=== PATIENT | male | born 1990 | race American Indian/Alaskan Native ===

== ENCOUNTER 2019-08-21 14:25 | Emergency (ER) | payer SELFPAY ==
[2019-08-21 15:42] LABS: Basophils % (Auto) 0.4 % (0.0-1.8); Eosinophils # (Auto) 0.1 K/mm3 (0.0-0.4); Eosinophils % (Auto) 2.1 % (0.0-4.3); Hematocrit 40.4 % (35.5-45.6); Hemoglobin 13.4 gm/dl (11.8-15.2); Lymphocytes # (Auto) 1.5 K/mm3 (1.2-5.4); Lymphocytes % (Auto) 24.5 % (13.4-35.0); Mean Corpuscular HGB Conc 33 % (32-34); Mean Corpuscular Volume 94 fl (84-94); Monocytes # (Auto) 0.7 K/mm3 (0.0-0.8); Platelet Count 202 K/mm3 (140-440); Red Blood Count 4.29 M/mm3 (3.65-5.03); Red Cell Distribution Width 15.2 % (13.2-15.2)
[2019-08-21 15:51] LABS: BUN/Creatinine Ratio 27; Blood Urea Nitrogen 24 mg/dL (9-20); Calcium 8.5 mg/dL (8.4-10.2); Hemolysis Index 7
--- NOTE | 2019-08-21 15:55 | Emergency Department Report ---
Chief Complaint: Abdominal Pain Stated Complaint: PAIN IN GENITAL/ABD PAIN/SORE THROAT Time Seen by Provider: 08/21/19 15:39 - HPI History of Present Illness: 28-year-old -[place] male presents to the emergency room complaining of dysuria and penile discharge for 2 weeks. Patient also reports to feeling nose and sore throat. Patient reports he works at [employer] any feels that environment history of this. Patient does admit to having unprotected interc ourse with 2 partners status. Patient reported to this he has chest pain but denies any chest pain to this provider. Patient is taking nothing for his pain. Patient denies any fever chills no nausea no vomiting no shortness of breath. - Exam Vital Signs: Vital Signs 08/21/19 14:32 Temperature 98.4 F Pulse Rate 88 Respiratory 16 Rate Blood Pressure 133/59 O2 Sat by Pulse 100 Oximetry Physical Exam: GENERAL APPEARANCE: Well developed, well nourished, in no acute distress. SKIN: Inspection of the skin reveals no rashes, ulcerations or petechiae. HEENT: The sclerae were anicteric and conjunctivae were pink and moist. Extraocular movements were intact and pupils were equal, round, and reactive to light with normal accommodation. External inspection of the ears and nose showed no scars, lesions, or masses. Lips, teeth, and gums showed normal mucosa. CHEST: Normal AP diameter and normal contour without any kyphoscoliosis. LUNGS: Auscultation of the lungs revealed normal breath sounds without any other adventitious sounds or rubs. CARDIOVASCULAR: There was a regular rate and rhythm without any murmurs, gallops, rubs. The carotid pulses were normal and 2+ bilaterally without bruits. Peripheral pulses were 2+ and symmetric. ABDOMEN: Soft and nontender with normal bowel sounds. MUSCULOSKELETAL: Gait was normal. There was no tenderness or effusions noted. Muscle strength and tone were normal. EXTREMITIES: No cyanosis, clubbing or edema. NEUROLOGIC: Alert and oriented x 3. Normal affect. Gait was normal. Sensation to touch was normal. MSE screening note: Focused history and physical exam performed. Due to findings the following was ordered: Patient currently has no chest pain. Patient can follow-up at the health Department for full STD panel. Stuffy nose and sore throat patient and take [id number] Flonase and Claritin. Patient to follow-up with one of the community providers of health Department. ED Medical Decision Making - Lab Data Result diagrams: 08/21/19 15:25 - Medical Decision Making 28-year-old -[place] male presents to the emergency room complaining of dysuria and penile discharge for 2 weeks. Patient also reports to feeling nose and sore throat. Patient reports he works at [employer] any feels that environment history of this. Patient does admit to having unprotected intercourse with 2 partners status. Patient reported to this he has chest pain but denies any chest pain to this provider. Patient is taking nothing for his pain. Patient denies any fever chills no nausea no vomiting no shortness of breath. ED Disposition for MSE Clinical Impression: Concern about STD in male without diagnosis Disposition: -01 TO HOME OR SELFCARE Is pt being admited?: No Does the pt Need Aspirin: No Condition: Stable Referrals: [facility] [Outside] - 3-5 Days [facility] [Outside] - 3-5 Days [facility] [Outside] - 3-5 Days [facility] [Outside] - 3-5 Days
[2019-08-21 16:21] LABS: Bilirubin,Urine NEG (Negative); Blood,Urine NEG (Negative); Color,Urine Yellow (Yellow); Mucus,Urine FEW /HPF; Protein,Urine <15 mg/dL mg/dL (Negative)
[2019-08-21 17:49] VITALS: BP 136/90
== END 2019-08-21 16:51 | disposition home or self-care (01) ==
LOC: ED 14:25
DX: R30.0 Dysuria (principal); R36.9 Urethral discharge, unspecified; J02.9 Acute pharyngitis, unspecified
CPT/HCPCS: 36415; 80048; 81001; 85025

== ENCOUNTER 2019-08-21 16:16 | Emergency (ER) | payer SELFPAY ==
[2019-08-21 16:38] VITALS: BP 101/67
--- NOTE | 2019-08-21 16:44 | Event Note ---
ED Screening Note Date of service: 08/21/19 Time: 16:35 ED Screening Note: Pt here again after being discharge today requesting medication to treat STI. Pt was seen earlier for dysuria and penile discharge x 2 weeks. Pt was informed to f/u at the Health department for testing and treatment given his condition is not a life threatening emergency. Pt denies fever or abdominal pain. Pt again informed to f/u with the health department-information given to pt. Vitals wnl. This initial assessment/diagnostic orders/clinical plan/treatment(s) is/are subject to change based on patients health status, clinical progression and re- assessment by fellow clinical providers in the ED. Further treatment and workup at subsequent clinical providers discretion. Patient/guardian urged not to elope from the ED as their condition may be serious if not clinically assessed and managed. Initial orders include:
== END 2019-08-21 17:00 | disposition left against medical advice (07) ==
LOC: ED 16:16
DX: R30.0 Dysuria (principal); Z53.21 Procedure and treatment not carried out due to patient leaving prior to being seen by health care provider

== ENCOUNTER 2019-10-08 05:01 | Emergency (ER) | payer SELFPAY ==
[2019-10-08] MEDS ORDERED: ONDANSETRON 4 MG/2 ML INJ ONE (05:10)
[2019-10-08] MEDS ORDERED: SODIUM CHLORIDE 0.9% 1000 ML 1,000 ML ONE (05:11)
[2019-10-08] MEDS ORDERED: HALOPERIDOL LACTATE 5 MG/1 ML INJ ONE (05:11)
[2019-10-08] MEDS ORDERED: HALOPERIDOL LACTATE 5 MG/1 ML INJ IV ONE (05:17)
[2019-10-08] MEDS ORDERED: SODIUM CHLORIDE 0.9% 1000 ML 1,000 ML IV ONE ×2 (05:21→06:31)
[2019-10-08] MEDS ORDERED: ONDANSETRON 4 MG/2 ML INJ IV ONE (05:21)
[2019-10-08] MEDS ORDERED: HYDROmorphone 1 MG/1 ML INJ IV ONE (05:22)
[2019-10-08 05:48] LABS: Basophils % (Auto) 0.1 % (0.0-1.8); Hematocrit 38.4 % (35.5-45.6); Hemoglobin 12.8 gm/dl (11.8-15.2); Lymphocytes # (Auto) 0.8 K/mm3 (1.2-5.4); Mean Corpuscular HGB Conc 33 % (32-34); Mean Corpuscular Volume 95 fl (84-94); Monocytes # (Auto) 0.8 K/mm3 (0.0-0.8); Monocytes % (Auto) 5.4 % (0.0-7.3); Platelet Count 233 K/mm3 (140-440); Red Blood Count 4.06 M/mm3 (3.65-5.03); Red Cell Distribution Width 14.3 % (13.2-15.2)
[2019-10-08 06:08] LABS: Alanine Aminotransferase 20 units/L (7-56); Albumin 4.3 g/dL (3.9-5); BUN/Creatinine Ratio 22; Blood Urea Nitrogen 20 mg/dL (9-20); Calcium 9.2 mg/dL (8.4-10.2); Hemolysis Index 2
[2019-10-08] MEDS ORDERED: PIPERACILLIN/TAZOBACTAM 3.375 3.375 GM/50 ML BAG IV ONE (06:48)
--- NOTE | 2019-10-08 07:03 | Emergency Department Report ---
ED Abdominal Pain HPI - General Chief Complaint: Abdominal Pain Stated Complaint: gastric ulcer Time Seen by Provider: 10/08/19 06:17 Source: patient, EMS Mode of arrival: Stretcher Limitations: No Limitations - History of Present Illness Initial Comments: Patient is 28 years old male with no significant past medical history. Patient presented to the ER complaining of severe epigastric pain started approximately 3 hours before getting to the hospital. Patient stated that pain is unassociated with nausea, vomiting and diarrhea. Patient denied any fever or chills. Patient denied any recent abdominal trauma. MD Complaint: abdominal pain -: Sudden Location: epigastric Radiation: none Migration to: no migration Severity: severe Severity scale (0 -10): 10 Quality: sharp Consistency: constant - Related Data Previous Rx's Medication Instructions Recorded Last Taken Type Amitriptyline [Elavil] 25 mg PO QHS #30 tab 07/25/15 Unknown Rx Allergies Allergy/AdvReac Type Severity Reaction Status Date / Time No Known Allergies Allergy Verified 08/21/19 16:25 ED Review of Systems ROS: Stated complaint: gastric ulcer Other details as noted in HPI Comment: All other systems reviewed and negative Constitutional: denies: chills, fever Respiratory: denies: cough, shortness of breath, SOB with exertion Cardiovascular: denies: chest pain, palpitations Gastrointestinal: abdominal pain, nausea, vomiting, diarrhea. denies: constipation, hematemesis, melena, hematochezia Musculoskeletal: denies: back pain Neurological: denies: headache, weakness, numbness, paresthesias, confusion, abnormal gait ED Past Medical Hx - Past Medical History Previous Medical History?: Yes Hx Congestive Heart Failure: No Hx Diabetes: No Hx Asthma: No Hx COPD: No Hx HIV: No Additional medical history: stomach ulcers - Surgical History Past Surgical History?: No - Social History Smoking Status: Never Smoker - Medications Home Medications: Home Medications Medication Instructions Recorded Confirmed Last Taken Type Amitriptyline [Elavil] 25 mg PO QHS #30 tab 07/25/15 Unknown Rx ED Physical Exam - General Limitations: No Limitations General appearance: alert, in no apparent distress - Head Head exam: Present: atraumatic, normocephalic, normal inspection - Eye Eye exam: Present: normal appearance - ENT ENT exam: Present: mucous membranes dry - Neck Neck exam: Present: normal inspection, full ROM. Absent: tenderness, meningismus, lymphadenopathy, thyromegaly - Respiratory Respiratory exam: Present: normal lung sounds bilaterally - Cardiovascular Cardiovascular Exam: Present: regular rate, normal rhythm, normal heart sounds - GI/Abdominal GI/Abdominal exam: Present: soft, normal bowel sounds. Absent: distended, tende rness, guarding, rebound, rigid, organomegaly, mass, bruit, pulsatile mass, hernia - Extremities Exam Extremities exam: Present: normal inspection, full ROM, normal capillary refill. Absent: pedal edema, calf tenderness - Back Exam Back exam: Present: normal inspection, full ROM. Absent: CVA tenderness (R), CVA tenderness (L), muscle spasm, paraspinal tenderness, vertebral tenderness - Neurological Exam Neurological exam: Present: alert, oriented X3, CN II-XII intact, normal gait, reflexes normal - Psychiatric Psychiatric exam: Present: normal mood - Skin Skin exam: Present: warm, intact, normal color ED Course Vital Signs 10/08/19 10/08/19 10/08/19 04:54 04:56 05:06 Temperature 97.7 F Pulse Rate 65 Respiratory 20 Rate Blood Pressure 93/48 Blood Pressure [Left] O2 Sat by Pulse 94 99 94 Oximetry 10/08/19 10/08/19 10/08/19 05:10 05:16 05:20 Temperature Pulse Rate Respiratory Rate Blood Pressure 93/48 96/46 96/46 Blood Pressure [Left] O2 Sat by Pulse 99 95 94 Oximetry 10/08/19 10/08/19 10/08/19 05:26 05:30 05:36 Temperature Pulse Rate Respiratory Rate Blood Pressure 99/53 99/53 Blood Pressure [Left] O2 Sat by Pulse 100 99 97 Oximetry 10/08/19 10/08/19 10/08/19 05:40 05:46 05:50 Temperature Pulse Rate Respiratory Rate Blood Pressure 107/54 118/61 111/59 Blood Pressure [Left] O2 Sat by Pulse 99 99 99 Oximetry 10/08/19 10/08/19 10/08/19 05:56 06:00 06:06 Temperature Pulse Rate Respiratory 16 Rate Blood Pressure 113/62 111/66 124/62 Blood Pressure [Left] O2 Sat by Pulse 99 99 98 Oximetry 10/08/19 10/08/19 10/08/19 06:10 06:16 06:20 Temperature Pulse Rate Respiratory Rate Blood Pressure 120/64 123/63 134/53 Blood Pressure [Left] O2 Sat by Pulse 98 98 98 Oximetry 10/08/19 10/08/19 10/08/19 06:26 06:30 06:36 Temperature Pulse Rate Respiratory Rate Blood Pressure 129/51 115/55 109/62 Blood Pressure [Left] O2 Sat by Pulse 96 96 96 Oximetry 10/08/19 10/08/19 10/08/19 06:40 06:46 06:50 Temperature Pulse Rate Respiratory Rate Blood Pressure 110/60 95/46 100/49 Blood Pressure [Left] O2 Sat by Pulse 96 96 96 Oximetry 10/08/19 10/08/19 10/08/19 06:56 07:27 07:28 Temperature Pulse Rate 80 Respiratory 16 Rate Blood Pressure 105/52 115/68 Blood Pressure 115/68 [Left] O2 Sat by Pulse 96 95 97 Oximetry 10/08/19 10/08/19 10/08/19 07:30 07:36 07:40 Temperature Pulse Rate 79 74 70 Respiratory 15 14 14 Rate Blood Pressure 115/68 115/68 115/68 Blood Pressure [Left] O2 Sat by Pulse 97 98 98 Oximetry 10/08/19 10/08/19 10/08/19 07:46 07:50 07:56 Temperature Pulse Rate 70 86 86 Respiratory 14 13 12 Rate Blood Pressure 115/68 115/68 115/68 Blood Pressure [Left] O2 Sat by Pulse 98 96 95 Oximetry 10/08/19 10/08/19 10/08/19 08:00 08:06 08:10 Temperature Pulse Rate 83 90 68 Respiratory 14 14 12 Rate Blood Pressure 115/68 115/68 115/68 Blood Pressure [Left] O2 Sat by Pulse 95 96 98 Oximetry 10/08/19 10/08/19 10/08/19 08:16 08:20 08:26 Temperature Pulse Rate 78 64 70 Respiratory 13 13 12 Rate Blood Pressure 115/68 115/68 115/68 Blood Pressure [Left] O2 Sat by Pulse 97 98 97 Oximetry 10/08/19 10/08/19 10/08/19 08:30 08:36 08:40 Temperature Pulse Rate 69 67 72 Respiratory 11 L 12 11 L Rate Blood Pressure 115/68 99/46 99/46 Blood Pressure [Left] O2 Sat by Pulse 97 98 98 Oximetry 10/08/19 10/08/19 10/08/19 08:46 08:50 08:56 Temperature Pulse Rate 67 110 H 105 H Respiratory 13 13 10 L Rate Blood Pressure 99/46 99/46 99/46 Blood Pressure [Left] O2 Sat by Pulse 98 98 97 Oximetry 10/08/19 10/08/19 10/08/19 09:00 09:06 09:10 Temperature Pulse Rate 67 68 68 Respiratory 13 12 12 Rate Blood Pressure 99/46 99/46 99/46 Blood Pressure [Left] O2 Sat by Pulse 98 98 98 Oximetry 10/08/19 09:50 Temperature Pulse Rate 65 Respiratory 12 Rate Blood Pressure Blood Pressure 122/43 [Left] O2 Sat by Pulse 98 Oximetry ED Medical Decision Making - Lab Data Result diagrams: 10/08/19 05:25 10/08/19 05:25 - Radiology Data Radiology results: report reviewed - Medical Decision Making Patient is 28 years old male with no significant past medical history. Patient presented to the ER complaining of severe epigastric pain started approximately 3 hours before getting to the hospital. Patient stated that pain is unassoc iated with nausea, vomiting and diarrhea. Patient denied any fever or chills. Patient denied any recent abdominal trauma. Labs reviewed that is unremarkable except for elevated white blood cells. CT abdomen and pelvis is negative for acute finding. Patient stated that he is feeling much better and he is ready to go home. Patient given prescription for Zofran and Nexium and advised to follow up with his primary care physician in the next 2-3 days and to return to the ER if symptoms are not improved. Critical care attestation.: If time is entered above; I have spent that time in minutes in the direct care of this critically ill patient, excluding procedure time. ED Disposition Clinical Impression: Cannabinoid hyperemesis syndrome, Abdominal pain, Vomiting Disposition: DC-01 TO HOME OR SELFCARE Is pt being admited?: No Condition: Stable Instructions: Cannabis Abuse (ED), Abdominal Pain (ED) Referrals: [facility] [Provider Group] - 3-5 Days
--- NOTE | 2019-10-08 07:51 | Cat Scan Report ---
CT ABDOMEN AND PELVIS WITH CONTRAST INDICATION: Generalized abdominal pain. COMPARISON: CT abdomen and pelvis with contrast from 07/22/2015. TECHNIQUE: Axial, coronal and sagittal CT imaging of the abdomen and pelvis was performed after inje ction of 100 cc Omnipaque [address] scans at this location are performed using CT dose re duction for ALARA by means of automated exposure control. FINDINGS: LOWER CHEST: No significant abnormality. LIVER: A probable cyst is noted along the anterior segment of the right hepatic lobe on image 22 of s eries 2 measuring 7 mm. There is probable focal fatty infiltration along the falciform ligament. No o ther significant abnormality is seen. BILIARY: No significant abnormality. PANCREAS: No significant abnormality. SPLEEN: No significant abnormality. ADRENALS: No significant abnormality. KIDNEYS AND URETERS: No significant abnormality. GI TRACT: No significant abnormality of the stomach, small bowel or colon. Unremarkable appendix. PERITONEUM: No free fluid. No free air. No fluid collection. LYMPH NODES: No significant adenopathy. VASCULATURE: No significant abnormality. URINARY BLADDER: No significant abnormality. REPRODUCTIVE ORGANS: No significant abnormality. ADDITIONAL FINDINGS: None. SKELETAL SYSTEM: No significant abnormality. IMPRESSION: No acute abnormality of the abdomen or pelvis. Signer Name: Narinder Li MD Signed: 10/08/2019 7:46 AM Workstation Name: [id number]
[2019-10-08 09:34] LABS: Bilirubin,Urine NEG (Negative); Blood,Urine NEG (Negative); Color,Urine Yellow (Yellow); Mucus,Urine FEW /HPF; Protein,Urine <15 mg/dL mg/dL (Negative); Urobilinogen,Urine < 2.0 mg/dL (<2.0)
[2019-10-08 09:44] LABS: Amphetamine Screen,Urine PRESUMPTIVE NEGATIVE; Benzodiazepines Screen,Urine PRESUMPTIVE NEGATIVE; Cocaine Screen,Urine PRESUMPTIVE NEGATIVE; Methadone Screen,Urine PRESUMPTIVE NEGATIVE; Opiate Screen,Urine PRESUMPTIVE NEGATIVE
[2019-10-08 09:51] VITALS: BP 122/43
[2019-10-08 09:56] LABS: Cannabinoid Screen,Urine PRESUMPTIVE POSITIVE
== END 2019-10-08 10:56 | disposition home or self-care (01) ==
LOC: ED 05:01
DX: R10.13 Epigastric pain (principal); R11.10 Vomiting, unspecified
CPT/HCPCS: 36415; 74177; 80053; 80307; 81001; 83690; 85025; 87040; 96361; 96365; 96375; 99284; J1170; J1630; J2405; J2543; J7030; Q9967

== ENCOUNTER 2019-10-15 22:38 | Emergency (ER) | payer SELFPAY ==
[2019-10-15 23:19] VITALS: BP 110/95
[2019-10-15] MEDS ORDERED: KETOROLAC 30 MG/1 ML INJ IV ONE (23:26)
[2019-10-15] MEDS ORDERED: ONDANSETRON 4 MG/2 ML INJ IV ONE (23:26)
[2019-10-15] MEDS ORDERED: DICYCLOMINE 20 MG/2 ML INJ IM ONE (23:26)
[2019-10-15] MEDS ORDERED: SODIUM CHLORIDE 0.9% 1000 ML 1,000 ML IV ONE (23:26)
[2019-10-15] MEDS ORDERED: FAMOTIDINE 20 MG/2 ML INJ IV ONE (23:26)
[2019-10-16 00:15] LABS: Basophils # (Auto) 0.1 K/mm3 (0.0-0.1); Basophils % (Auto) 0.8 % (0.0-1.8); Eosinophils # (Auto) 0.1 K/mm3 (0.0-0.4); Eosinophils % (Auto) 0.9 % (0.0-4.3); Hematocrit 38.1 % (35.5-45.6); Lymphocytes # (Auto) 1.9 K/mm3 (1.2-5.4); Lymphocytes % (Auto) 26.7 % (13.4-35.0); Mean Corpuscular HGB Conc 34 % (32-34); Mean Corpuscular Volume 95 fl (84-94); Monocytes # (Auto) 0.5 K/mm3 (0.0-0.8); Monocytes % (Auto) 6.4 % (0.0-7.3); Platelet Count 244 K/mm3 (140-440); Red Blood Count 4.04 M/mm3 (3.65-5.03); Red Cell Distribution Width 14.2 % (13.2-15.2)
[2019-10-16 00:38] LABS: Alanine Aminotransferase 16 units/L (7-56); Albumin 4.1 g/dL (3.9-5); BUN/Creatinine Ratio 20; Blood Urea Nitrogen 18 mg/dL (9-20); Hemolysis Index 8
--- NOTE | 2019-10-16 02:53 | Emergency Department Report ---
ED N/V/D HPI - General Chief complaint: Abdominal Pain Stated complaint: ABD PAIN Time Seen by Provider: 10/15/19 23:26 Source: EMS Mode of arrival: Stretcher Limitations: No Limitations - History of Present Illness Initial comments: Patient is a 28-year-old [place] male with past medical history of ulcers was complaining of some left upper quadrant pain with nausea vomiting diarrhea. Patient states pain is been present for last several hours. It occurred acutely. Patient states his last meal was some donut sticks. He denies fevers chills. Patient states the pain is a 10 out of 10 in severity. It is not has remained quite some time. - Related Data Previous Rx's Medication Instructions Recorded Last Taken Type Amitriptyline [Elavil] 25 mg PO QHS #30 tab 07/25/15 Unknown Rx Esomeprazole Magnesium [NexIUM] 40 mg PO QDAY #30 capsule. 10/08/19 Unknown Rx Ondansetron [Zofran Odt] 4 mg PO Q8HR PRN #14 tab.rapdis 10/08/19 Unknown Rx Ondansetron [Zofran Odt] 4 mg PO Q8HR #10 tab.rapdis 10/16/19 Unknown Rx Pantoprazole [Protonix] 40 mg PO QDAY #30 tablet 10/16/19 Unknown Rx Allergies Allergy/AdvReac Type Severity Reaction Status Date / Time No Known Allergies Allergy Verified 08/21/19 16:25 ED Review of Systems ROS: Stated complaint: ABD PAIN Other details as noted in HPI Comment: All other systems reviewed and negative ED Past Medical Hx - Past Medical History Previous Medical History?: Yes Hx Congestive Heart Failure: No Hx Diabetes: No Hx Asthma: No Hx COPD: No Hx HIV: No Additional medical history: stomach ulcers - Surgical History Past Surgical History?: No - Social History Smoking Status: Never Smoker Substance Use Type: Marijuana - Medications Home Medications: Home Medications Medication Instructions Recorded Confirmed Last Taken Type Amitriptyline [Elavil] 25 mg PO QHS #30 tab 07/25/15 Unknown Rx Esomeprazole Magnesium [NexIUM] 40 mg PO QDAY #30 capsule. 10/08/19 Unknown Rx Ondansetron [Zofran Odt] 4 mg PO Q8HR PRN #14 tab.malik 10/08/19 Unknown Rx Ondansetron [Zofran Odt] 4 mg PO Q8HR #10 tab.rapdis 10/16/19 Unknown Rx Pantoprazole [Protonix] 40 mg PO QDAY #30 tablet 10/16/19 Unknown Rx ED Physical Exam - General Limitations: No Limitations General appearance: alert, in distress - Head Head exam: Present: atraumatic, normocephalic - Eye Eye exam: Present: normal appearance, PERRL, EOMI - ENT ENT exam: Present: mucous membranes moist - Neck Neck exam: Present: normal inspection - Respiratory Respiratory exam: Present: normal lung sounds bilaterally. Absent: respiratory distress, wheezes, rales, rhonchi - Cardiovascular Cardiovascular Exam: Present: regular rate, normal rhythm, normal heart sounds. Absent: systolic murmur, diastolic murmur, rubs, gallop - GI/Abdominal GI/Abdominal exam: Present: soft, tenderness (epigastric and LUQ pain ), normal bowel sounds. Absent: distended, guarding, rebound - Rectal Rectal exam: Present: deferred - Extremities Exam Extremities exam: Present: normal inspection - Back Exam Back exam: Present: normal inspection - Neurological Exam Neurological exam: Present: alert, oriented X3 - Psychiatric Psychiatric exam: Present: normal affect, normal mood - Skin Skin exam: Present: warm, dry, intact, normal color. Absent: rash ED Course Vital Signs 10/15/19 23:18 Temperature 99.5 F Pulse Rate 75 Respiratory 18 Rate Blood Pressure 110/95 [Right] O2 Sat by Pulse 97 Oximetry ED Medical Decision Making - Lab Data Result diagrams: 10/15/19 23:53 10/15/19 23:53 Lab Results 10/15/19 10/15/19 Range/Units 23:53 23:53 WBC 7.1 (4.5-11.0) K/mm3 RBC 4.04 (3.65-5.03) M/mm3 Hgb 13.0 (11.8-15.2) gm/dl Hct 38.1 (35.5-45.6) % MCV 95 H (84-94) fl MCH 32 (28-32) pg MCHC 34 (32-34) % RDW 14.2 (13.2-15.2) % Plt Count 244 (140-440) K/mm3 Lymph % (Auto) 26.7 (13.4-35.0) % [place] % (Auto) 6.4 (0.0-7.3) % Eos % (Auto) 0.9 (0.0-4.3) % Baso % (Auto) 0.8 (0.0-1.8) % Lymph # 1.9 (1.2-5.4) K/mm3 [place] # 0.5 (0.0-0.8) K/mm3 Eos # 0.1 (0.0-0.4) K/mm3 Baso # 0.1 (0.0-0.1) K/mm3 Seg Neutrophils % 65.2 (40.0-70.0) % Seg Neutrophils # 4.6 (1.8-7.7) K/mm3 Sodium 141 (137-145) mmol/L Potassium 3.9 (3.6-5.0) mmol/L Chloride 106.8 (98-107) mmol/L Carbon Dioxide 24 (22-30) mmol/L Anion Gap 14 mmol/L BUN 18 (9-20) mg/dL Creatinine 0.9 (0.8-1.5) mg/dL Estimated GFR > 60 ml/min BUN/Creatinine Ratio 20 % Glucose 103 H (75-100) mg/dL Calcium 9.0 (8.4-10.2) mg/dL Total Bilirubin 0.80 (0.1-1.2) mg/dL AST 20 (5-40) units/L ALT 16 (7-56) units/L Alkaline Phosphatase 49 (35-129) units/L Total Protein 6.7 (6.3-8.2) g/dL Albumin 4.1 (3.9-5) g/dL Albumin/Globulin Ratio 1.6 % Lipase 124 H (13-60) units/L - Radiology Data CT abd pelvis was refused by patient - Medical Decision Making Admitted that he's had multiple CTs are all negative this year. Patient refuses CT. Patient states he feels better and is ready to go home. Patient to be discharged home with medication for symptomatic relief. Critical care attestation.: If time is entered above; I have spent that time in minutes in the direct care of this critically ill patient, excluding procedure time. ED Disposition Clinical Impression: Gastritis Disposition: DC-01 TO HOME OR SELFCARE Is pt being admited?: No Does the pt Need Aspirin: No Condition: Stable Instructions: Gastritis (ED) Referrals: [facility] [Provider Group] - 3-5 Days
[2019-10-16] MEDS ORDERED: ONDANSETRON 4 MG ODT TAB PO ONE (03:58)
[2019-10-16] MEDS ORDERED: ALUM-MAG HYDROXIDE-SIMETHICONE 200-200-20MG/5ML ORAL LIQD 30 ML PO ONE (04:50)
[2019-10-16] MEDS ORDERED: LIDOCAINE VISCOUS 2% 15 ML ORAL LIQD PO ONE (04:50)
== END 2019-10-16 05:16 | disposition home or self-care (01) ==
LOC: ED 22:38
DX: K29.70 Gastritis, unspecified, without bleeding (principal); F12.10 Cannabis abuse, uncomplicated; Z79.899 Other long term (current) drug therapy
CPT/HCPCS: 36415; 80053; 83690; 85025; 96372; 96374; 96375; 99284; J0500; J1885; J2405; J7030; Q0162

== ENCOUNTER 2019-12-25 15:12 | Emergency (ER) | payer SELFPAY ==
[2019-12-25 15:18] VITALS: BP 100/61
== END 2019-12-25 16:20 | disposition left against medical advice (07) ==
LOC: ED 15:12
DX: R10.9 Unspecified abdominal pain (principal); Z53.21 Procedure and treatment not carried out due to patient leaving prior to being seen by health care provider

== ENCOUNTER 2020-03-31 16:56 | Emergency (ER) | payer SELFPAY ==
[2020-03-31] MEDS ORDERED: HALOPERIDOL LACTATE 5 MG/1 ML INJ IM STA (18:30)
[2020-03-31] MEDS ORDERED: SODIUM CHLORIDE 0.9% 500 ML 500 ML IV ONE (18:30)
[2020-03-31] MEDS ORDERED: CAPSAICIN 0.075% CREAM 60 GM TP STA (18:30)
[2020-03-31] MEDS ORDERED: PANTOPRAZOLE 40 MG INJ IV ONE (18:31)
--- NOTE | 2020-03-31 18:32 | Emergency Department Report ---
ED General Adult HPI - General Chief complaint: Abdominal Pain Stated complaint: ABD PAIN/VOMITING PUI?: No Time Seen by Provider: 03/31/20 17:59 Source: patient, RN notes reviewed, old records reviewed Mode of arrival: Ambulatory Limitations: Physical Limitation - History of Present Illness Initial comments: The patient is a 29-year-old gentleman. He is not known to myself previously. He does not have a local primary care doctor. His past medical history includes cyclic vomiting syndrome, possible cannabinoid hyperemesis syndrome. He may also have a history of GERD, gastritis. He presents to the ER with 3 to 4 days of nontraumatic left-sided abdominal pain, nausea and vomiting. This is similar to prior presentations. Abdominal pain is sharp and throbbing, does not radiate anywhere, increases with palpation, decreases with rest and position. There is no complaint of headache, neck pain, chest pain. There is no testicular pain, and there were no irritative or obstructive urinary symptoms. He further reports no coronavirus symptoms. He also reports that there is no change in his symptomatology when taking a hot bath or hot shower. Emesis is nonbloody and nonbilious. -: Gradual, days(s) Location: abdomen Consistency: constant Improves with: rest Worsens with: movement - Related Data Previous Rx's Medication Instructions Recorded Last Taken Type Amitriptyline [Elavil] 25 mg PO QHS #30 tab 07/25/15 Unknown Rx Esomeprazole Magnesium [NexIUM] 40 mg PO QDAY #30 capsule. 10/08/19 Unknown Rx Ondansetron [Zofran Odt] 4 mg PO Q8HR PRN #14 tab.malik 10/08/19 Unknown Rx Ondansetron [Zofran Odt] 4 mg PO Q8HR #10 tab.malik 10/16/19 Unknown Rx Pantoprazole [Protonix] 40 mg PO QDAY #30 tablet 10/16/19 Unknown Rx Famotidine [Pepcid] 20 mg PO BID #10 tablet 03/31/20 Unknown Rx Ana Root [Ana] 250 mg PO QID PRN #30 capsule 03/31/20 Unknown Rx Metoclopramide [Reglan] 10 mg PO QID PRN #30 tablet 03/31/20 Unknown Rx Promethazine [Phenergan] 25 mg CO Q6HR PRN #15 supp.rect 03/31/20 Unknown Rx Allergies Allergy/AdvReac Type Severity Reaction Status Date / Time No Known Allergies Allergy Verified 12/25/19 15:17 ED Review of Systems ROS: Stated complaint: ABD PAIN/VOMITING Other details as noted in HPI Constitutional: malaise. denies: fever Eyes: denies: eye discharge ENT: denies: congestion Respiratory: denies: wheezing Cardiovascular: denies: chest pain Gastrointestinal: abdominal pain, nausea, vomiting. denies: diarrhea, constipation, hematemesis, melena, hematochezia Genitourinary: denies: urgency, dysuria, frequency, testicular pain Musculoskeletal: denies: back pain Skin: denies: lesions Neurological: weakness Psychiatric: anxiety Hematological/Lymphatic: denies: easy bleeding ED Past Medical Hx - Past Medical History Previous Medical History?: Yes Hx Congestive Heart Failure: No Hx Diabetes: No Hx Asthma: No Hx COPD: No Hx HIV: No Additional medical history: stomach ulcers - Surgical History Past Surgical History?: No - Social History Smoking Status: Current Every Day Smoker Substance Use Type: Alcohol - Medications Home Medications: Home Medications Medication Instructions Recorded Confirmed Last Taken Type Amitriptyline [Elavil] 25 mg PO QHS #30 tab 07/25/15 Unknown Rx Esomeprazole Magnesium [NexIUM] 40 mg PO QDAY #30 capsule.dr 10/08/19 Unknown Rx Ondansetron [Zofran Odt] 4 mg PO Q8HR PRN #14 tab.gayatridis 10/08/19 Unknown Rx Ondansetron [Zofran Odt] 4 mg PO Q8HR #10 tab.malik 10/16/19 Unknown Rx Pantoprazole [Protonix] 40 mg PO QDAY #30 tablet 10/16/19 Unknown Rx Famotidine [Pepcid] 20 mg PO BID #10 tablet 03/31/20 Unknown Rx Ana Root [Ana] 250 mg PO QID PRN #30 capsule 03/31/20 Unknown Rx Metoclopramide [Reglan] 10 mg PO QID PRN #30 tablet 03/31/20 Unknown Rx Promethazine [Phenergan] 25 mg CO Q6HR PRN #15 supp.rect 03/31/20 Unknown Rx ED Physical Exam - General Limitations: No Limitations General appearance: alert, anxious, in distress - Head Head exam: Present: atraumatic, normocephalic - Eye Eye exam: Present: normal appearance, EOMI. Absent: nystagmus - ENT ENT exam: Present: normal exam, normal orophraynx, mucous membranes moist, normal external ear exam - Neck Neck exam: Present: normal inspection, full ROM. Absent: tenderness, meningismus - Respiratory Respiratory exam: Present: normal lung sounds bilaterally. Absent: respiratory distress - Cardiovascular Cardiovascular Exam: Present: normal rhythm, tachycardia, normal heart sounds. Absent: systolic murmur, diastolic murmur, rubs, gallop - GI/Abdominal GI/Abdominal exam: Present: soft, tenderness, other (There is diffuse left-sided abdominal tenderness.). Absent: distended, guarding, rebound, rigid, pulsatile mass - Rectal Rectal exam: Present: deferred - Extremities Exam Extremities exam: Present: normal inspection, full ROM, other (2+ pulses noted in the bilateral upper and lower extremities. There is no palpable cord. negative Homans sign. Muscular compartments are soft. The pelvis is stable.). Absent: pedal edema, calf tenderness - Back Exam Back exam: Present: normal inspection. Absent: tenderness, CVA tenderness (R), CVA tenderness (L), paraspinal tenderness, vertebral tenderness - Neurological Exam Neurological exam: Present: alert, oriented X3, other (No facial droop. Tongue midline. Extraocular movements intact bilaterally. Facial sensation intact to light touch in V1, V2, V3 distribution bilaterally. 5 and a 5 strength in 4 extremities. Sensation intact to light touch in 4 extremities.). Absent: motor sensory deficit - Psychiatric Psychiatric exam: Present: anxious - Skin Skin exam: Present: warm, dry, intact, normal color. Absent: rash ED Course Vital Signs 03/31/20 03/31/20 03/31/20 17:12 17:15 17:16 Temperature 98 F Pulse Rate 105 H Respiratory 16 Rate Blood Pressure 103/63 105/68 103/63 O2 Sat by Pulse 100 100 Oximetry 03/31/20 03/31/20 03/31/20 17:45 18:15 18:52 Temperature Pulse Rate Respiratory Rate Blood Pressure 95/58 103/68 113/73 O2 Sat by Pulse 98 100 97 Oximetry 03/31/20 03/31/20 03/31/20 19:01 19:15 20:00 Temperature Pulse Rate Respiratory Rate Blood Pressure 95/58 130/74 124/65 O2 Sat by Pulse 98 98 95 Oximetry 03/31/20 03/31/20 03/31/20 20:15 21:00 21:15 Temperature Pulse Rate 164 H 112 H Respiratory 14 Rate Blood Pressure 130/74 169/119 136/70 O2 Sat by Pulse 98 94 99 Oximetry 03/31/20 03/31/20 03/31/20 21:31 21:45 22:01 Temperature Pulse Rate 104 H 105 H 109 H Respiratory 14 14 Rate Blood Pressure 136/70 O2 Sat by Pulse 98 99 98 Oximetry 03/31/20 03/31/20 03/31/20 22:15 22:31 22:45 Temperature Pulse Rate 105 H 108 H 129 H Respiratory 14 20 Rate Blood Pressure O2 Sat by Pulse 100 99 99 Oximetry 03/31/20 03/31/20 04/01/20 23:00 23:45 00:00 Temperature Pulse Rate 109 H Respiratory 21 Rate Blood Pressure 113/70 102/56 O2 Sat by Pulse 98 99 97 Oximetry - Reevaluation(s) Reevaluation #1: 03/31/20 19:10 Differential diagnosis, including but not limited to: Cannabinoid hyperemesis syndrome, constipation, cyclic vomiting syndrome Assessment and plan: 29-year-old gentleman with recurrent ER visits for left- sided nontraumatic abdominal pain. This is similar to prior presentations. He was seen in October 2019 for similar symptoms. He had a CT scan abdomen pelvis October 08, 2019 which was negative for acute findings. On a subsequent visit, he declined a CAT scan. We will treat the patient's symptoms with supportive medications, and haloperidol to start. Extensive discussion had with patient. I did offer patient a CT scan, but he declined it at a concern for radiation. He understands the risks of not having a CT scan, as an obstruction, perforation, or a large kidney stone might be missed. However, given review of old chart, and similarity to prior presentations, I suspect that this is likely an exacerbation of his Cyclic vomiting syndrome and possible cannabinoid hyperemesis syndrome. Therefore, at this point in time, through shared decision making, we agreed to forego CT scan imaging. Laboratory studies, urinalysis pending. Reevaluation #2: 03/31/20 21:38 Reassessed. Belly much softer on repeat examination. Laboratory studies are reviewed and appreciated. Suggestive of dehydration, and poor oral intake. Ketones are noted in the urine. Suspect that laboratory studies are likely secondary to cyclic vomiting syndrome exacerbation. Patient may have had a mild dystonic reaction after haloperidol, and this was terminated with Benadryl. Nursing team instructed to feed patient. Repeat basic metabolic panel is pending. Patient is clinically improving. Reevaluation #3: 03/31/20 23:40 Tachycardia is much improved. No active vomiting. Laboratory studies show improvement in anion gap, and maintenance of euglycemia/hyperglycemia. The patient is suitable for trial of outpatient management at this time. He can be discharged to follow-up with outpatient gastroenterology. ED Medical Decision Making - Lab Data Result diagrams: 03/31/20 19:01 03/31/20 22:45 Vital Signs 03/31/20 17:16 Temperature 98 F Pulse Rate 105 H Respiratory 16 Rate Blood Pressure 103/63 O2 Sat by Pulse 100 Oximetry Vital Signs 03/31/20 17:16 Temperature 98 F Pulse Rate 105 H Respiratory 16 Rate Blood Pressure 103/63 O2 Sat by Pulse 100 Oximetry Lab Results 03/31/20 03/31/20 03/31/20 Range/Units 19:01 19:01 19:01 WBC 8.7 (4.5-11.0) K/mm3 RBC 4.82 (3.65-5.03) M/mm3 Hgb 14.4 (11.8-15.2) gm/dl Hct 44.0 (35.5-45.6) % MCV 91 (84-94) fl MCH 30 (28-32) pg MCHC 33 (32-34) % RDW 14.3 (13.2-15.2) % Plt Count 251 (140-440) K/mm3 PT 12.9 (12.2-14.9) Sec. INR 0.96 (0.87-1.13) Sodium 136 L (137-145) mmol/L Potassium 4.5 (3.6-5.0) mmol/L Chloride 97.1 L (98-107) mmol/L Carbon Dioxide 16 L (22-30) mmol/L Anion Gap 27 mmol/L BUN 32 H (9-20) mg/dL Creatinine 1.4 (0.8-1.5) mg/dL Estimated GFR > 60 ml/min BUN/Creatinine Ratio 23 % Glucose 65 L (75-100) mg/dL Calcium 9.5 (8.4-10.2) mg/dL Magnesium 2.20 (1.7-2.3) mg/dL Total Bilirubin 1.40 H (0.1-1.2) mg/dL AST 20 (5-40) units/L ALT 11 (7-56) units/L Alkaline Phosphatase 69 (35-129) units/L Total Creatine Kinase 152 (55-170) units/L Total Protein 6.8 (6.3-8.2) g/dL Albumin 4.6 (3.9-5) g/dL Albumin/Globulin Ratio 2.1 % Lipase (13-60) units/L 05/28/20 Range/Units 19:01 WBC (4.5-11.0) K/mm3 RBC (3.65-5.03) M/mm3 Hgb (11.8-15.2) gm/dl Hct (35.5-45.6) % MCV (84-94) fl MCH (28-32) pg MCHC (32-34) % RDW (13.2-15.2) % Plt Count (140-440) K/mm3 PT (12.2-14.9) Sec. INR (0.87-1.13) Sodium (137-145) mmol/L Potassium (3.6-5.0) mmol/L Chloride (98-107) mmol/L Carbon Dioxide (22-30) mmol/L Anion Gap mmol/L BUN (9-20) mg/dL Creatinine (0.8-1.5) mg/dL Estimated GFR ml/min BUN/Creatinine Ratio % Glucose (75-100) mg/dL Calcium (8.4-10.2) mg/dL Magnesium (1.7-2.3) mg/dL Total Bilirubin (0.1-1.2) mg/dL AST (5-40) units/L ALT (7-56) units/L Alkaline Phosphatase (35-129) units/L Total Creatine Kinase (55-170) units/L Total Protein (6.3-8.2) g/dL Albumin (3.9-5) g/dL Albumin/Globulin Ratio % Lipase 21 (13-60) units/L - EKG Data -: EKG Interpreted by Al EKG shows normal: sinus rhythm Rate: normal - EKG Data When compared to previous EKG there are: previous EKG unavailable 03/31/20 19:10 Sinus rhythm, 96 bpm, normal axis, normal intervals, poor R wave progression, low voltage high lateral leads. The EKG is abnormal. The EKG is not a STEMI. I do not have a prior for comparison. Critical care attestation.: If time is entered above; I have spent that time in minutes in the direct care of this critically ill patient, excluding procedure time. ED Disposition Clinical Impression: History of nausea and vomiting Disposition: - TO HOME OR SELFCARE Is pt being admited?: No Does the pt Need Aspirin: No Condition: Stable Additional Instructions: Avoid consumption of Motrin, ibuprofen, Naprosyn, Aleve, heavy and spicy foods, alcohol, tobacco, cannabis/marijuana. Take the prescribed medications as needed and directed. The patient may also purchase hot sauce from a local [employer], brand not important, and rub/apply hot sauce on his anterior abdominal wall, as often as as needed for symptom control and symptom relief. Please take the Reglan medication as needed for nausea and vomiting, ana tablets as needed for nausea and vomiting, and Phenergan suppositories as needed for intractable nausea and vomiting not relieved by the aforementioned oral medications. Patient may take [id number] Tylenol as needed for pain. Please follow-up with your primary care doctor or [facility] within the next 5 to 7 days. Return to the emergency room right away with new pain, worsening pain, migration of pain, projectile vomiting, change in mental status, confusion, inability to tolerate liquid feeds, new, worsened or different symptoms not present on the initial emergency room evaluation. Prescriptions: Ana Root [Ana] 250 mg PO QID PRN #30 capsule PRN Reason: Nausea Famotidine [Pepcid] 20 mg PO BID #10 tablet Promethazine [Phenergan] 25 mg CO Q6HR PRN #15 supp.rect PRN Reason: Nausea Metoclopramide [Reglan] 10 mg PO QID PRN #30 tablet PRN Reason: Nausea Referrals: [facility] [Provider Group] - 3-5 Days [facility] [Provider Group] - 3-5 Days
[2020-03-31 19:34] LABS: Hemoglobin 14.4 gm/dl (11.8-15.2); Mean Corpuscular HGB Conc 33 % (32-34); Mean Corpuscular Volume 91 fl (84-94); Platelet Count 251 K/mm3 (140-440); Red Blood Count 4.82 M/mm3 (3.65-5.03); Red Cell Distribution Width 14.3 % (13.2-15.2)
[2020-03-31 19:44] LABS: INR 0.96 (0.87-1.13)
[2020-03-31 19:45] LABS: Alanine Aminotransferase 11 units/L (7-56); Albumin 4.6 g/dL (3.9-5); BUN/Creatinine Ratio 23; Blood Urea Nitrogen 32 mg/dL (9-20); Calcium 9.5 mg/dL (8.4-10.2); Hemolysis Index 12
[2020-03-31] MEDS ORDERED: SODIUM CHLORIDE 0.9% 1000 ML 2,000 ML IV ONE (20:35)
[2020-03-31] MEDS ORDERED: DEXTROSE 50% IN WATER (25GM) 50 ML SYRINGE IV PRN (20:36)
[2020-03-31 20:41] LABS: Bilirubin,Urine NEG (Negative); Blood,Urine NEG (Negative); Color,Urine Yellow (Yellow); Mucus,Urine FEW /HPF; Protein,Urine <15 mg/dL mg/dL (Negative); Urobilinogen,Urine < 2.0 mg/dL (<2.0)
[2020-03-31] MEDS ORDERED: diphenhydrAMINE 50 MG/ML VIAL IV ONE (21:00)
[2020-03-31] MEDS ORDERED: D5W/0.45% NACL 1,000 ML IV SCH (21:00)
[2020-03-31] MEDS ORDERED: diphenhydrAMINE 50 MG/ML VIAL ONE (21:02)
[2020-03-31 21:48] LABS: BUN/Creatinine Ratio 19; Blood Urea Nitrogen 27 mg/dL (9-20); Calcium 8.2 mg/dL (8.4-10.2); Hemolysis Index 23
[2020-03-31 23:30] LABS: BUN/Creatinine Ratio 21; Blood Urea Nitrogen 25 mg/dL (9-20); Calcium 8.5 mg/dL (8.4-10.2); Hemolysis Index 5
[2020-04-01 00:09] VITALS: BP 102/56
== END 2020-04-01 00:40 | disposition home or self-care (01) ==
LOC: ED 16:56
DX: R11.2 Nausea with vomiting, unspecified (principal); R10.9 Unspecified abdominal pain; F17.200 Nicotine dependence, unspecified, uncomplicated; Z79.899 Other long term (current) drug therapy
CPT/HCPCS: 36415; 80048; 80053; 81001; 82550; 82962; 83690; 83735; 85027; 85610; 93005; 96361; 96372; 96374; 96375; 99284; C9113; J1200; J1630; J7040

== ENCOUNTER 2020-04-02 00:31 | Inpatient (IN) | payer SELFPAY ==
[2020-04-02] MEDS ORDERED: HALOPERIDOL LACTATE 5 MG/1 ML INJ IM STA (00:32)
[2020-04-02] MEDS ORDERED: SODIUM CHLORIDE 0.9% 1000 ML 1,000 ML IV ONE ×2 (00:32→02:36)
[2020-04-02] MEDS ORDERED: diphenhydrAMINE 50 MG/ML VIAL IV ONE (00:35)
[2020-04-02] MEDS ORDERED: METOCLOPRAMIDE 10 MG/2 ML INJ IV ONE (00:35)
--- NOTE | 2020-04-02 00:36 | Emergency Department Report ---
ED General Adult HPI - General Chief complaint: Abdominal Pain Stated complaint: ABD PAIN, VOMITING PUI?: No Time Seen by Provider: 04/02/20 00:32 Source: patient, EMS ( EMS documentation not available at time of chart di ctation ), RN notes reviewed, old records reviewed Mode of arrival: Stretcher Limitations: Physical Limitation - History of Present Illness Initial comments: The patient is a 29-year-old gentleman. I saw him yesterday for abdominal pain, likely secondary to cyclic vomiting syndrome/possible cannabinoid hyperemesis syndrome. Please see my note from yesterday for full details of his past medical history. Apparently, after receiving haloperidol, he went home, and felt uneasy, and jittery. He also describes difficulty with sleeping. His abdominal pain, nausea vomiting came back. It is a same pain that he had yesterday. It is relieved with a one-time dose of hydromorphone in the emergency room. The patient refused haloperidol. He was also improved mildly with Reglan. However, he is still having jittering, nausea and vomiting. -: Gradual Location: abdomen Quality: burning, stabbing, aching Consistency: constant Improves with: medication Worsens with: other (Palpation, range of motion) - Related Data Previous Rx's Medication Instructions Recorded Last Taken Type Amitriptyline [Elavil] 25 mg PO QHS #30 tab 07/25/15 Unknown Rx Esomeprazole Magnesium [NexIUM] 40 mg PO QDAY #30 capsule. 10/08/19 Unknown Rx Ondansetron [Zofran Odt] 4 mg PO Q8HR PRN #14 tab.malik 10/08/19 Unknown Rx Ondansetron [Zofran Odt] 4 mg PO Q8HR #10 tab.malik 10/16/19 Unknown Rx Pantoprazole [Protonix] 40 mg PO QDAY #30 tablet 10/16/19 Unknown Rx Famotidine [Pepcid] 20 mg PO BID #10 tablet 03/31/20 Unknown Rx Ana Root [Ana] 250 mg PO QID PRN #30 capsule 03/31/20 Unknown Rx Metoclopramide [Reglan] 10 mg PO QID PRN #30 tablet 03/31/20 Unknown Rx Promethazine [Phenergan] 25 mg [place] Q6HR PRN #15 supp.rect 03/31/20 Unknown Rx Allergies Allergy/AdvReac Type Severity Reaction Status Date / Time No Known Allergies Allergy Verified 12/25/19 15:17 ED Review of Systems ROS: Stated complaint: ABD PAIN, VOMITING Other details as noted in HPI Constitutional: malaise. denies: fever Cardiovascular: denies: syncope Gastrointestinal: abdominal pain, nausea, vomiting Genitourinary: as per HPI Musculoskeletal: as per HPI Skin: as per HPI Neurological: as per HPI Psychiatric: anxiety ED Past Medical Hx - Past Medical History Hx Congestive Heart Failure: No Hx Diabetes: No Hx Asthma: No Hx COPD: No Hx HIV: No Additional medical history: stomach ulcers - Social History Smoking Status: Current Every Day Smoker Substance Use Type: Alcohol - Medications Home Medications: Home Medications Medication Instructions Recorded Confirmed Last Taken Type Amitriptyline [Elavil] 25 mg PO QHS #30 tab 07/25/15 Unknown Rx Esomeprazole Magnesium [NexIUM] 40 mg PO QDAY #30 capsule.dr 10/08/19 Unknown Rx Ondansetron [Zofran Odt] 4 mg PO Q8HR PRN #14 tab.gayatridis 10/08/19 Unknown Rx Ondansetron [Zofran Odt] 4 mg PO Q8HR #10 tab.rapdis 10/16/19 Unknown Rx Pantoprazole [Protonix] 40 mg PO QDAY #30 tablet 10/16/19 Unknown Rx Famotidine [Pepcid] 20 mg PO BID #10 tablet 03/31/20 Unknown Rx Ana Root [Ana] 250 mg PO QID PRN #30 capsule 03/31/20 Unknown Rx Metoclopramide [Reglan] 10 mg PO QID PRN #30 tablet 03/31/20 Unknown Rx Promethazine [Phenergan] 25 mg [place] Q6HR PRN #15 supp.rect 03/31/20 Unknown Rx ED Physical Exam - General Limitations: Physical Limitation General appearance: alert, anxious, in distress - Head Head exam: Present: atraumatic, normocephalic - Eye Eye exam: Present: normal appearance - ENT ENT exam: Present: normal exam, mucous membranes moist, normal external ear exam - Neck Neck exam: Present: normal inspection, full ROM - Respiratory Respiratory exam: Present: normal lung sounds bilaterally. Absent: respiratory distress - Cardiovascular Cardiovascular Exam: Present: normal rhythm, tachycardia, normal heart sounds. Absent: systolic murmur, diastolic murmur, rubs, gallop - GI/Abdominal GI/Abdominal exam: Present: tenderness, other (Mild diffuse abdominal tenderness). Absent: distended, guarding, rebound, rigid, pulsatile mass - Rectal Rectal exam: Present: deferred - Extremities Exam Extremities exam: Present: normal inspection, full ROM, other (2+ pulses noted in the bilateral upper and lower extremities. There is no palpable cord. negative Homans sign. Muscular compartments are soft. The pelvis is stable.). Absent: pedal edema, calf tenderness - Back Exam Back exam: Present: normal inspection, full ROM. Absent: tenderness, CVA tenderness (R), CVA tenderness (L), paraspinal tenderness, vertebral tenderness - Neurological Exam Neurological exam: Present: alert, other (No facial droop. Tongue midline. Extraocular movements intact bilaterally. Facial sensation intact to light touch in V1, V2, V3 distribution bilaterally. 5 and a 5 strength in 4 extremities. Sensation intact to light touch in 4 extremities.). Absent: motor sensory deficit - Psychiatric Psychiatric exam: Present: anxious - Skin Skin exam: Present: warm, dry, intact, normal color. Absent: rash ED Course Vital Signs 04/02/20 04/02/20 04/02/20 00:37 00:44 00:46 Temperature 98.3 F Pulse Rate 112 H Respiratory 22 Rate Blood Pressure 127/81 Blood Pressure 127/81 [Left] O2 Sat by Pulse 81 L 100 99 Oximetry 04/02/20 04/02/20 04/02/20 00:47 01:00 01:16 Temperature 98.3 F Pulse Rate 112 H Respiratory 20 Rate Blood Pressure 127/81 127/81 127/81 Blood Pressure [Left] O2 Sat by Pulse 100 100 100 Oximetry 04/02/20 04/02/20 04/02/20 01:36 01:46 02:00 Temperature Pulse Rate Respiratory Rate Blood Pressure 146/74 146/74 104/64 Blood Pressure [Left] O2 Sat by Pulse 100 100 Oximetry 04/02/20 04/02/20 04/02/20 02:30 03:00 03:22 Temperature 97.4 F L Pulse Rate 70 Respiratory 20 Rate Blood Pressure 120/84 115/83 115/83 Blood Pressure 115/83 [Left] O2 Sat by Pulse 98 Oximetry 04/02/20 04/02/20 03:30 03:46 Temperature Pulse Rate Respiratory Rate Blood Pressure 122/83 122/83 Blood Pressure [Left] O2 Sat by Pulse 98 100 Oximetry - Reevaluation(s) Reevaluation #1: 04/02/20 01:59 Differential diagnosis, including but not limited to: Cyclic vomiting syndrome, cannabinoid hyperemesis syndrome, enteritis, ileus, obstruction, IBS Assessment and plan: 29-year-old gentleman, with recurrent symptoms, likely suggestive of cannabinoid hyperemesis syndrome versus cyclic vomiting syndrome versus both. He is agreeable to CT scan of the abdomen pelvis. It suggests enteritis and possible adynamic ileus. Explained to the patient that we would recommend haloperidol for his symptomatology. He improved dramatically with this medication yesterday. He is refusing administration of the medication. He is requesting additional hydromorphone. Explained to the patient that he was given a one-time compassionate dose of hydromorphone for breakthrough pain, however, given his aforementioned diagnoses, he is counseled that narcotic therapy will only worsen symptoms, and we will treat him with nonnarcotic medicine at this time. He does exhibit decision-making capacity at this time. Laboratory studies pending. Reevaluation #2: 04/02/20 03:14 Patient is improved. His tachycardia has resolved. He is tolerating liquid feeds. He has made multiple requests for additional hydromorphone. Patient was counseled multiple times that hydromorphone was administered for acute pain control, however, long-term narcotic use will exacerbate his underlying disease process. The patient is suitable for discharge once again. He will need to follow-up with outpatient gastroenterology. ED Medical Decision Making - Lab Data Result diagrams: 04/02/20 01:42 04/02/20 01:42 Vital Signs 04/02/20 04/02/20 00:44 00:47 Temperature 98.3 F 98.3 F Pulse Rate 112 H 112 H Respiratory 22 20 Rate Blood Pressure 127/81 Blood Pressure 127/81 [Left] O2 Sat by Pulse 100 100 Oximetry - EKG Data -: EKG Interpreted by Wy EKG shows normal: sinus rhythm Rate: normal - EKG Data Interpretation: no acute changes 04/02/20 01:59 04/02/20 04:34 Sinus rhythm, 92 bpm, normal axis, high left ventricular voltage, motion artifact, QTC is prolonged. There is low voltage in the high lateral leads. The EKG is not a STEMI. - Radiology Data Radiology results: pending, report reviewed, image reviewed TECHNIQUE: Axial CT images were obtained through the abdomen and pelvis after IV contrast. All CT scans at this location are performed using CT dose reduction for ALARA by means of automated exposure control. FINDINGS -- ABDOMEN: Lung Bases: No acute abnormality. Liver: Normal. Gallbladder: Normal. Bile Ducts: Normal. Pancreas: Normal. Spleen: Normal. Adrenals: Normal. Right Kidney and Proximal Ureter: Normal. Left Kidney and Proximal Ureter: Normal. Stomach and B owel: Fluid filled small bowel loops with some mucosal thickening. No transition is appreciated.. Lymph Nodes: No significant adenopathy. Aorta: No significant abnormality. IVC: Normal. Additional Findings: None. FINDINGS -- PELVIS: Urinary Bladder and Distal Ureters: Normal. Reproductive Organs: No acute abnormality. Appendix: Only partially visualized but does not appear inflamed.. Bowel: No acute abnormality. Free Fluid: None. Lymph Nodes: No significant adenopathy. Additional Findings: None. Skeletal System: No acute abnormality. IMPRESSION: Question mild enteritis/adynamic ileus of the small bowel Critical care attestation.: If time is entered above; I have spent that time in minutes in the direct care of this critically ill patient, excluding procedure time. ED Disposition Clinical Impression: Abdominal pain, Nausea and vomiting, Cyclical vomiting syndrome Disposition: DC-01 TO HOME OR SELFCARE Is pt being admited?: No Does the pt Need Aspirin: No Condition: Stable Additional Instructions: Please make certain to fill the prescriptions that were recently written for the patient. Avoid consumption of Motrin, ibuprofen, Naprosyn, Aleve, heavy and/or spicy foods. Advance diet as tolerated, consume plenty of bread, rice, apples, toast. Follow-up with an outpatient primary care doctor or [facility] [employer] [facility] within the next 5 days. Do not take metformin medication for the next 2 days, if patient takes this medication. Avoid consumption of tobacco, alcohol, marijuana, and cannabis. Return to the emergency room right away with new, worsened or different symptoms, or symptoms not present on the initial emergency room evaluation. Referrals: SHEILA MATUTE MD [Staff Physician] - 3-5 Days
[2020-04-02] MEDS ORDERED: HYDROmorphone 1 MG/1 ML INJ IV ONE (00:41)
[2020-04-02] MEDS ORDERED: D5W/0.45% NACL 1,000 ML IV SCH (01:00)
[2020-04-02] MEDS ORDERED: HALOPERIDOL LACTATE 5 MG/1 ML INJ ONE (01:00)
--- NOTE | 2020-04-02 01:46 | Cat Scan Report ---
CT ABDOMEN AND PELVIS WITH IV CONTRAST INDICATION: MAIN: diffuse abd pain 100cc Omni 300. COMPARISON: 10/08/2019. TECHNIQUE: Axial CT images were obtained through the abdomen and pelvis after IV contrast. All CT scans at this location are performed using CT dose reduction for ALARA by means of automated exposure control. FINDINGS -- ABDOMEN: Lung Bases: No acute abnormality. Liver: Normal. Gallbladder: Normal. Bile Ducts: Normal. Pancreas: Normal. Spleen: Normal. Adrenals: Normal. Right Kidney and Proximal Ureter: Normal. Left Kidney and Proximal Ureter: Normal. Stomach and Bowel: Fluid filled small bowel loops with some mucosal thickening. No transition is appr eciated.. Lymph Nodes: No significant adenopathy. Aorta: No significant abnormality. IVC: Normal. Additional Findings: None. FINDINGS -- PELVIS: Urinary Bladder and Distal Ureters: Normal. Reproductive Organs: No acute abnormality. Appendix: Only partially visualized but does not appear inflamed.. Bowel: No acute abnormality. Free Fluid: None. Lymph Nodes: No significant adenopathy. Additional Findings: None. Skeletal System: No acute abnormality. IMPRESSION: Question mild enteritis/adynamic ileus of the small bowel Signer Name: Collin Hansen MD Signed: 04/02/2020 1:42 AM Workstation Name: [email or web address]
[2020-04-02] MEDS ORDERED: ONDANSETRON 4 MG/2 ML INJ IV ONE (01:55)
[2020-04-02 02:05] LABS: Basophils % (Auto) 0.4 % (0.0-1.8); Eosinophils % (Auto) 0.5 % (0.0-4.3); Hematocrit 35.7 % (35.5-45.6); Hemoglobin 12.2 gm/dl (11.8-15.2); Lymphocytes # (Auto) 1.4 K/mm3 (1.2-5.4); Lymphocytes % (Auto) 14.5 % (13.4-35.0); Mean Corpuscular HGB Conc 34 % (32-34); Mean Corpuscular Volume 92 fl (84-94); Monocytes # (Auto) 0.5 K/mm3 (0.0-0.8); Monocytes % (Auto) 5.6 % (0.0-7.3); Platelet Count 197 K/mm3 (140-440); Red Blood Count 3.86 M/mm3 (3.65-5.03); Red Cell Distribution Width 14.1 % (13.2-15.2)
[2020-04-02 02:20] LABS: Alanine Aminotransferase 10 units/L (7-56); BUN/Creatinine Ratio 12; Blood Urea Nitrogen 13 mg/dL (9-20); Calcium 8.8 mg/dL (8.4-10.2); Hemolysis Index 4
[2020-04-02] MEDS ORDERED: SUCRALFATE 1 GM/10 ML ORAL LIQD PO ONE (02:36)
[2020-04-02] MEDS ORDERED: POTASSIUM CHLORIDE ER 20 MEQ TAB PO ONE (02:36)
[2020-04-02] MEDS ORDERED: KETOROLAC 30 MG/1 ML INJ IV ONE (03:38)
[2020-04-02] MEDS ORDERED: LORazepam 2 MG/ML VIAL IV STA (03:38)
[2020-04-02] MEDS ORDERED: ONDANSETRON 4 MG/2 ML INJ IV PRN (04:02)
[2020-04-02] MEDS ORDERED: MAGNESIUM HYDROXIDE (MOM) ORAL LIQD UDC PO PRN (04:02)
[2020-04-02] MEDS ORDERED: ACETAMINOPHEN 325 MG TAB PO PRN (04:02)
[2020-04-02] MEDS ORDERED: SODIUM CHLORIDE 0.9% 1000 ML 1,000 ML IV SCH (04:15)
--- NOTE | 2020-04-02 04:28 | History and Physical Report ---
History of Present Illness Date of examination: 04/02/20 Date of admission: 04/02/2020 Chief complaint: Nausea and vomiting Abdominal pain History of present illness: 29-year-old -[place] male presenting to the emergency room today complaining of nausea and vomiting with associated abdominal pain. Patient has known history of peptic ulcer disease, cyclic vomiting syndrome and possible cannabinoid hyperemesis syndrome.. He was seen in the emergency room yesterday and was given some pain medication and haloperidol and was discharged home. He states the haloperidol made him jittery and felt uneasy. Patient reports back today with similar complaints. He denies any fever or chills, no chest pain or shortness of breath, no headache or dizziness, no diarrhea, no hematuria or dysuria. Patient denies any sick contacts and no recent travel. Work-up in the emergency room including CT scan of the abdomen and pelvis shows enteritis versus adynamic ileus. Patient had some IV Zofran and Dilaudid in the emergency room with significant improvement. Past History Past Medical History: other (Peptic ulcer disease) Past Surgical History: No surgical history Social history: alcohol abuse (Occasional alcohol) Family history: no significant family history Medications and Allergies Allergies Allergy/AdvReac Type Severity Reaction Status Date / Time No Known Allergies Allergy Verified 12/25/19 15:17 Home Medications Medication Instructions Recorded Confirmed Last Taken Type Amitriptyline [Elavil] 25 mg PO QHS #30 tab 07/25/15 Unknown Rx Esomeprazole Magnesium [NexIUM] 40 mg PO QDAY #30 capsule. 10/08/19 Unknown Rx Ondansetron [Zofran Odt] 4 mg PO Q8HR PRN #14 tab.malik 10/08/19 Unknown Rx Ondansetron [Zofran Odt] 4 mg PO Q8HR #10 tab.malik 10/16/19 Unknown Rx Pantoprazole [Protonix] 40 mg PO QDAY #30 tablet 10/16/19 Unknown Rx Famotidine [Pepcid] 20 mg PO BID #10 tablet 03/31/20 Unknown Rx Ana Root [Ana] 250 mg PO QID PRN #30 capsule 03/31/20 Unknown Rx Metoclopramide [Reglan] 10 mg PO QID PRN #30 tablet 03/31/20 Unknown Rx Promethazine [Phenergan] 25 mg [place] Q6HR PRN #15 supp.rect 03/31/20 Unknown Rx Active Meds: Active Medications Acetaminophen (Tylenol) 650 mg PO Q4H PRN PRN Reason: Pain MILD(1-3)/Fever >100.5/RAMOS Dextrose/Sodium Chloride (D5/0.45ns) 1,000 mls @ 0 mls/hr IV DIRECT IRMA Last Admin: 04/02/20 04:07 Dose: 999 mls/hr Documented by: Sodium Chloride (Nacl 0.9% 1000 Ml) 1,000 mls @ 125 mls/hr IV DIRECT IRMA Magnesium Hydroxide (Milk Of Magnesia) 30 ml PO Q4H PRN PRN Reason: Constipation Ondansetron HCl (Zofran) 4 mg IV Q8H PRN PRN Reason: Nausea And Vomiting Pantoprazole Sodium (Protonix) 40 mg IV BID IRMA Sodium Chloride (Sodium Chloride Flush Syringe 10 Ml) 10 ml IV BID IRMA Sodium Chloride (Sodium Chloride Flush Syringe 10 Ml) 10 ml IV PRN PRN PRN Reason: LINE FLUSH Review of Systems Constitutional: no fever, no chills Cardiovascular: no chest pain, no palpitations Respiratory: no cough, no shortness of breath Gastrointestinal: abdominal pain, nausea, vomiting, no diarrhea, no hematemesis Genitourinary Male: no dysuria, no hematuria, no flank pain Musculoskeletal: no neck pain, no low back pain Integumentary: no rash, no pruritis Neurological: no syncope, no headaches, no confusion Psychiatric: no anxiety, no depression Exam - Constitutional Vitals: Temp Pulse Resp BP Pulse Ox 97.4 F L 70 20 122/83 100 04/02/20 03:22 04/02/20 03:22 04/02/20 03:22 04/02/20 03:46 04/02/20 03:46 General appearance: Present: no acute distress, well-nourished - EENT Eyes: Present: PERRL, EOM intact ENT: hearing intact, clear oral mucosa, dentition normal - Neck Neck: Present: supple, normal ROM - Respiratory Respiratory effort: normal Respiratory: bilateral: CTA - Cardiovascular Rhythm: regular Heart Sounds: Present: S1 & S2 - Extremities Extremities: no ischemia, pulses intact, pulses symmetrical, No edema, Full ROM Peripheral Pulses: within normal limits - Abdominal General gastrointestinal: Present: soft, tender (Tender epigastric region, no rebound tenderness, no masses), non-distended, normal bowel sounds - Integumentary Integumentary: Present: clear, warm, dry - Musculoskeletal Musculoskeletal: strength equal bilaterally - Psychiatric Psychiatric: appropriate mood/affect, intact judgment & insight, cooperative - Neurologic Neurologic: CNII-XII intact, moves all extremities Results - Labs CBC & Chem 7: 04/02/20 01:42 04/02/20 01:42 Labs: Abnormal lab results 04/02/20 04/02/20 Range/Units 01:42 01:42 Seg Neutrophils % 79.0 H (40.0-70.0) % Potassium 3.4 L D (3.6-5.0) mmol/L Carbon Dioxide 17 L (22-30) mmol/L Glucose 105 H (75-100) mg/dL Total Creatine Kinase 242 H (55-170) units/L Total Protein 6.2 L (6.3-8.2) g/dL Assessment and Plan - Patient Problems (1) Nausea and vomiting Current Visit: Yes Status: Acute Plan to address problem: We will place patient on IV Zofran PRN. (2) Abdominal pain Current Visit: Yes Status: Acute Plan to address problem: Possibly related to the nausea and vomiting. Patient also has known history of peptic ulcer disease. Will place on IV Protonix. CT of the abdomen reveals enteritis versus adynamic ileus. We will place a consult to gastroenterology for further evaluation and recommendation. (3) DVT prophylaxis Current Visit: Yes Status: Acute (4) Full code status Current Visit: Yes Status: Acute
[2020-04-02] MEDS ORDERED: PANTOPRAZOLE 40 MG INJ IV SCH (10:00)
[2020-04-02] MEDS: METOCLOPRAMIDE 10 MG/2 ML INJ IV SCH ×3 (12:13→21:04)
--- NOTE | 2020-04-02 12:29 | Event Note ---
Date: 04/02/20 Patient seen and examined Patient is admitted this morning with intractable nausea vomiting and abdominal pain CT abdomen pelvis showed possible ileus, mild GI has been consulted, patient appears to be very lethargic unable to even open up his eyes We will plan to reduce his IV pain medication, will continue to monitor clinically, will get abdominal x-ray Will place on clear liquid diet from dinner We will continue to follow clinically and follow GI recommendation
[2020-04-02] MEDS: MORPHINE 2 MG/1 ML INJ IV PRN ×4 (12:37→23:35)
[2020-04-02] MEDS ORDERED: D5W/0.45% NACL 1,000 ML with POTASSIUM CHLORIDE 20 MEQ IV SCH (13:00)
--- NOTE | 2020-04-02 13:23 | XRay Report ---
SUPINE ABDOMEN 04/02/2020 INDICATION / CLINICAL INFORMATION: ileus. COMPARISON: CT scan abdomen/pelvis 04/02/2020 FINDINGS: No significant small bowel dilatation. Gas is seen in the ascending and transverse colon. Residual CT contrast in the renal collecting systems and urinary bladder. Signer Name: Monster Alarcon MD Signed: 04/02/2020 1:18 PM Workstation Name: [id number]
[2020-04-02] MEDS: D5W/0.45% NACL/KCL 20 MEQ 20 MEQ/1,000 ML BAG IV SCH (15:22)
--- NOTE | 2020-04-02 18:59 | Gastroenterology Consultation ---
History of Present Illness - Reason for Consult Consult date: 04/02/20 N/V Requesting physician: ERICK CRONIN - History of Present Illness The patient is a 29 yo male with a long (>5 years) hx of cyclic N/V. Of note, he has had an EGD years ago that was negative, and has been on chronic amytriptyline for this in the past (not clear he was taking this). He also has a hx of prolonged and daily/heavy MJ use, and has been dx with Cannabis Hyperemesis Syndrome. He has been somnolent most of the afternoon, and in no visible distress. He has had no melena, and imaging was negative. Past History Past Medical History: other (Peptic ulcer disease) Past Surgical History: No surgical history Social history: alcohol abuse (Occasional alcohol), other (MJ abuse) Family history: no significant family history Medications and Allergies Allergies Allergy/AdvReac Type Severity Reaction Status Date / Time No Known Allergies Allergy Verified 12/25/19 15:17 Home Medications Medication Instructions Recorded Confirmed Last Taken Type Amitriptyline [Elavil] 25 mg PO QHS #30 tab 07/25/15 Unknown Rx Esomeprazole Magnesium [NexIUM] 40 mg PO QDAY #30 capsule.dr 10/08/19 Unknown Rx Ondansetron [Zofran Odt] 4 mg PO Q8HR PRN #14 tab.gayatridis 10/08/19 Unknown Rx Ondansetron [Zofran Odt] 4 mg PO Q8HR #10 tab.gayatridis 10/16/19 Unknown Rx Pantoprazole [Protonix] 40 mg PO QDAY #30 tablet 10/16/19 Unknown Rx Famotidine [Pepcid] 20 mg PO BID #10 tablet 03/31/20 Unknown Rx Ana Root [Ana] 250 mg PO QID PRN #30 capsule 03/31/20 Unknown Rx Metoclopramide [Reglan] 10 mg PO QID PRN #30 tablet 03/31/20 Unknown Rx Promethazine [Phenergan] 25 mg [place] Q6HR PRN #15 supp.rect 03/31/20 Unknown Rx Active Meds: Active Medications Acetaminophen (Tylenol) 650 mg PO Q4H PRN PRN Reason: Pain MILD(1-3)/Fever >100.5/RAMOS Last Admin: 04/02/20 10:26 Dose: 650 mg Documented by: Amitriptyline HCl (Elavil) 25 mg PO QHS [facility] Enoxaparin Sodium (Enoxaparin) 40 mg SUB-Q QDAY@2200 IRMA Sodium Chloride (Nacl 0.9% 1000 Ml) 1,000 mls @ 125 mls/hr IV DIRECT IRMA Last Admin: 04/02/20 06:01 Dose: 125 mls/hr Documented by: Potassium Chloride/Dextrose/Sod Cl (D5w/0.45% Nacl/Kcl 20 Meq) 20 meq in 1,000 mls @ 75 mls/hr IV DIRECT IRMA Last Admin: 04/02/20 15:22 Dose: 75 mls/hr Documented by: Magnesium Hydroxide (Milk Of Magnesia) 30 ml PO Q4H PRN PRN Reason: Constipation Metoclopramide HCl (Reglan) 10 mg IV ACHS [facility] Last Admin: 04/02/20 16:40 Dose: 10 mg Documented by: Morphine Sulfate (Morphine) 1 mg IV Q4H PRN PRN Reason: Pain , Severe (7-10) Last Admin: 04/02/20 16:40 Dose: 1 mg Documented by: Ondansetron HCl (Zofran) 4 mg IV Q8H PRN PRN Reason: Nausea And Vomiting Last Admin: 04/02/20 15:21 Dose: 4 mg Documented by: Pantoprazole Sodium (Protonix) 40 mg IV BID [facility] Last Admin: 04/02/20 09:57 Dose: 40 mg Documented by: Sodium Chloride (Sodium Chloride Flush Syringe 10 Ml) 10 ml IV BID [facility] Last Admin: 04/02/20 09:57 Dose: Not Given Documented by: Sodium Chloride (Sodium Chloride Flush Syringe 10 Ml) 10 ml IV PRN PRN PRN Reason: LINE FLUSH Last Admin: 04/02/20 06:01 Dose: 10 ml Documented by: I HAVE REVIEWED/RECONCILED MEDICATIONS Review of Systems - Review of Systems All systems: negative (as noted in the HPI.) Exam - Constitutional Vital Signs: Temp Pulse Resp BP Pulse Ox 98.3 F 95 H 19 106/62 96 04/02/20 16:43 04/02/20 16:43 04/02/20 16:43 04/02/20 16:43 04/02/20 16:43 General appearance: no acute distress, other (Sonorous) - EENT Eyes: PERRL, EOM intact, other (Injected sclera) ENT: hearing intact, clear oral mucosa - Neck Neck: supple, normal ROM - Respiratory Respiratory effort: normal Respiratory: bilateral: CTA - Cardiovascular Rhythm: regular Heart Sounds: Present: S1 & S2 Extremities: no ischemia, No edema - Gastrointestinal General gastrointestinal: Present: soft, non-tender, non-distended - Integumentary Integumentary: Present: clear, warm, dry - Neurologic Neurological: alert and oriented x3 - Labs CBC & Chem 7: 04/02/20 01:42 04/02/20 01:42 Lab Results: Laboratory Results - last 24 hr 04/02/20 04/02/20 01:42 01:42 WBC 9.3 RBC 3.86 Hgb 12.2 Hct 35.7 D MCV 92 MCH 32 MCHC 34 RDW 14.1 Plt Count 197 Lymph % (Auto) 14.5 [place] % (Auto) 5.6 Eos % (Auto) 0.5 Baso % (Auto) 0.4 Lymph # 1.4 [place] # 0.5 Eos # 0.0 Baso # 0.0 Seg Neutrophils % 79.0 H Seg Neutrophils # 7.4 Sodium 140 Potassium 3.4 L D Chloride 101.4 Carbon Dioxide 17 L Anion Gap 25 BUN 13 Creatinine 1.1 Estimated GFR > 60 BUN/Creatinine Ratio 12 Glucose 105 H Calcium 8.8 Magnesium 2.00 Total Bilirubin 1.00 AST 22 ALT 10 Alkaline Phosphatase 53 Total Creatine Kinase 242 H Total Protein 6.2 L Albumin 4.0 Albumin/Globulin Ratio 1.8 Lipase 23 Assessment and Plan - Patient Problems (1) Cannabis hyperemesis syndrome concurrent with and due to cannabis abuse Current Visit: Yes Status: Acute Plan to address problem: - Recommend UDS to assure no other drugs of abuse. - Continue current pain/nausea medication control. - IV hydration. - Advance to regular diet; patient may eat as possible. - Encourage abstinance. - EGD if significant drop in hct, but currently no melena or anemia.
[2020-04-02] MEDS ORDERED: ENOXAPARIN 40 MG/0.4 ML INJ SUB-Q SCH (22:00)
[2020-04-02] MEDS ORDERED: AMITRIPTYLINE 25 MG TAB PO SCH (22:00)
[2020-04-03] MEDS: MORPHINE 2 MG/1 ML INJ IV PRN ×2 (05:16→09:26)
[2020-04-03] MEDS: D5W/0.45% NACL/KCL 20 MEQ 20 MEQ/1,000 ML BAG IV SCH (05:50)
[2020-04-03 05:54] LABS: Basophils % (Auto) 0.4 % (0.0-1.8); Eosinophils % (Auto) 0.2 % (0.0-4.3); Hematocrit 33.7 % (35.5-45.6); Hemoglobin 11.6 gm/dl (11.8-15.2); Lymphocytes # (Auto) 2.3 K/mm3 (1.2-5.4); Mean Corpuscular HGB Conc 34 % (32-34); Mean Corpuscular Volume 93 fl (84-94); Monocytes # (Auto) 0.5 K/mm3 (0.0-0.8); Monocytes % (Auto) 6.4 % (0.0-7.3); Platelet Count 166 K/mm3 (140-440); Red Blood Count 3.64 M/mm3 (3.65-5.03); Red Cell Distribution Width 14.6 % (13.2-15.2)
[2020-04-03 06:05] LABS: INR 1.11 (0.87-1.13)
[2020-04-03 06:16] LABS: BUN/Creatinine Ratio 8; Blood Urea Nitrogen 7 mg/dL (9-20); Calcium 8.7 mg/dL (8.4-10.2); Hemolysis Index 4
[2020-04-03] MEDS: METOCLOPRAMIDE 10 MG/2 ML INJ IV SCH ×2 (08:09→11:19)
[2020-04-03 08:40] LABS: Amphetamine Screen,Urine PRESUMPTIVE NEGATIVE; Benzodiazepines Screen,Urine PRESUMPTIVE NEGATIVE; Cocaine Screen,Urine PRESUMPTIVE NEGATIVE; Methadone Screen,Urine PRESUMPTIVE NEGATIVE
[2020-04-03 09:04] LABS: Cannabinoid Screen,Urine PRESUMPTIVE POSITIVE; Opiate Screen,Urine PRESUMPTIVE POSITIVE
--- NOTE | 2020-04-03 09:04 | Gastroenterology Progress Note ---
Assessment and Plan Patient symptoms have resolved. This is most likely going to be consistent with either acute viral illness or cannabis hyperemesis syndrome as patient did report significantly increasing his cannabis use recently From GI perspective as patient is improved he may be discharged home and I counseled him regarding cannabis cessation As long as the symptoms do not return he does not require any further GI follow- up GI will sign off please call back with any questions or concerns - Patient Problems (1) Abdominal pain Current Visit: Yes Status: Acute (2) Cannabis hyperemesis syndrome concurrent with and due to cannabis abuse Current Visit: Yes Status: Acute (3) Cyclical vomiting syndrome Current Visit: Yes Status: Acute (4) Nausea and vomiting Current Visit: Yes Status: Acute Subjective Date of service: 04/03/20 Principal diagnosis: N/V Interval history: Patient reports currently feeling better as he reports no nausea vomiting or abdominal pain. He feels fine. And reports eating breakfast without difficulty. Objective - Constitutional Vitals: Temp Pulse Resp BP Pulse Ox 98.2 F 73 16 110/72 98 04/03/20 05:29 04/03/20 05:29 04/03/20 05:29 04/03/20 05:29 04/03/20 05:29 General appearance: no acute distress - Respiratory Respiratory effort: normal - Cardiovascular Rhythm: regular - Gastrointestinal General gastrointestinal: Present: soft, non-tender - Labs CBC & Chem 7: 04/03/20 05:28 04/03/20 05:28 Labs: Laboratory Results - last 24 hr 04/03/20 04/03/20 04/03/20 05:28 05:28 05:28 WBC 8.1 RBC 3.64 L Hgb 11.6 L Hct 33.7 L MCV 93 MCH 32 MCHC 34 RDW 14.6 Plt Count 166 Lymph % (Auto) 29.0 [place] % (Auto) 6.4 Eos % (Auto) 0.2 Baso % (Auto) 0.4 Lymph # 2.3 [place] # 0.5 Eos # 0.0 Baso # 0.0 Seg Neutrophils % 64.0 Seg Neutrophils # 5.2 PT 14.4 INR 1.11 Sodium 142 Potassium 3.4 L Chloride 103.0 Carbon Dioxide 24 D Anion Gap 18 BUN 7 L Creatinine 0.9 Estimated GFR > 60 BUN/Creatinine Ratio 8 Glucose 109 H Calcium 8.7 Urine Methadone Screen Ur Barbiturates Screen Ur Phencyclidine Scrn Ur Amphetamines Screen U Benzodiazepines Scrn Urine Cocaine Screen Drugs of Abuse Note 04/03/20 08:20 WBC RBC Hgb Hct MCV MCH MCHC RDW Plt Count Lymph % (Auto) [place] % (Auto) Eos % (Auto) Baso % (Auto) Lymph # [place] # Eos # Baso # Seg Neutrophils % Seg Neutrophils # PT INR Sodium Potassium Chloride Carbon Dioxide Anion Gap BUN Creatinine Estimated GFR BUN/Creatinine Ratio Glucose Calcium Urine Methadone Screen Presumptive negative Ur Barbiturates Screen Presumptive negative Ur Phencyclidine Scrn Presumptive negative Ur Amphetamines Screen Presumptive negative U Benzodiazepines Scrn Presumptive negative Urine Cocaine Screen Presumptive negative Drugs of Abuse Note Disclamer
[2020-04-03] MEDS ORDERED: PANTOPRAZOLE 40 MG TAB PO SCH (10:00)
[2020-04-03 11:44] VITALS: BP 112/77
--- NOTE | 2020-04-03 12:05 | Discharge Summary ---
Providers - Providers Date of Admission: 04/02/20 04:43 Date of discharge: 04/03/20 Attending physician: ERIKC CRONIN 04/02/20 04:02 Consult to Physician [CONS] Routine Comment: Consulting Provider: SHEILA MATUTE Physician Instructions: Reason For Exam: intractable nausea/vomiting, Adynamic ileus Primary care physician: [employer] Hospitalization Condition: Stable Hospital course: Patient is a 29 y/o male with a long (>5 years) hx of cyclic N/V, also has a hx of prolonged and daily/heavy MJ use, and has been dx with Cannabis Hyperemesis Syndrome, admitted with intractable nausea vomiting and abdominal pain. CT abdomen pelvis showed possible ileus, mild, but repeat KUB was negative. GI has been consulted, and recommended medical Mx. His UDS is positive for marijuana. He was managed with antiemetics, and anagesics as needed. Patient symptoms resolved and was tolerating diet. This is most likely going to be consistent with either acute viral illness or cannabis hyperemesis syndrome as patient did report significantly increasing his cannabis use recently. counseled him regarding cannabis cessation and was planned for discharge but he left AMA before his discharge paper was given. Discharge diagnosis; (1) Abdominal pain Current Visit: Yes Status: Acute (2) Cannabis hyperemesis syndrome concurrent with and due to cannabis abuse Current Visit: Yes Status: Acute (3) Cyclical vomiting syndrome Current Visit: Yes Status: Acute (4) Nausea and vomiting Current Visit: Yes Status: Acute Physical exam: General appearance: no acute distress - EENT Eyes: PERRL, EOM intact, other (Injected sclera) ENT: hearing intact, clear oral mucosa - Neck Neck: supple, normal ROM - Respiratory Respiratory effort: normal Respiratory: bilateral: CTA - Cardiovascular Rhythm: regular Heart Sounds: Present: S1 & S2 Extremities: no ischemia, No edema - Gastrointestinal General gastrointestinal: Present: soft, non-tender, non-distended - Integumentary Integumentary: Present: clear, warm, dry - Neurologic Neurological: alert and oriented x3 Disposition: DC-07 LEFT AGAINST MED ADVICE Time spent for discharge: 34 minutes Core Measure Documentation - Palliative Care Palliative Care/ Comfort Measures: Not Applicable - Core Measures Any of the following diagnoses?: none Exam - Constitutional Vitals: Temp Pulse Resp BP Pulse Ox 98.4 F 68 16 112/77 99 04/03/20 11:31 04/03/20 11:31 04/03/20 11:31 04/03/20 11:31 04/03/20 11:31 Plan Activity: advance as tolerated Diet: regular Special Instructions: other (abstinance from substance abuse) Follow up with: SHEILA MATUTE MD [Staff Physician] - 3-5 Days Prescriptions: Amitriptyline [Elavil] 25 mg PO QHS #30 tab Pantoprazole [Protonix TAB] 40 mg PO QDAY #30 tablet Metoclopramide [Reglan TAB] 10 mg PO QID PRN #30 tablet PRN Reason: Nausea
== END 2020-04-03 13:15 | disposition left against medical advice (07) | DRG 894 ==
LOC: ED 00:31 → IMCU 04:43
PROVIDERS: ADMIT Internal Medicine Geriatric Medicine; ATTEND Internal Medicine
DX: F12.188 Cannabis abuse with other cannabis-induced disorder (principal); R11.15 Cyclical vomiting syndrome unrelated to migraine; F17.200 Nicotine dependence, unspecified, uncomplicated; Z87.11 Personal history of peptic ulcer disease
CPT/HCPCS: 36415; 74018; 74177; 80048; 80053; 80307; 82550; 83690; 83735; 85025; 85610; 93005; G0378; C9113; J1170; J1200; J1630; J1650; J1885; J2060; J2270; J2405; J2765; J3480; J7030; Q9967

== ENCOUNTER 2020-08-10 20:29 | Emergency (ER) | payer SELFPAY | END 2020-08-10 22:23 | disposition left against medical advice (07) | LOC: ED 20:29 | DX: R10.9 Unspecified abdominal pain (principal); Z53.21 Procedure and treatment not carried out due to patient leaving prior to being seen by health care provider ==